=== PATIENT | male | born 1995 | race African-American/Black ===

== ENCOUNTER 2024-01-08 00:17 | Emergency (ER) | payer OTHER ==
[~2024-01-08] VITALS: Ht 177.8 cm; Wt 56.7 kg
[2024-01-08 00:55] VITALS: TEMP 98.1
[2024-01-08 01:43] VITALS: BP 130/70; O2SAT 98
[2024-01-08] MEDS ORDERED: CYCL5TAB PO (01:43)
[2024-01-08] MEDS ORDERED: KETOROLAC TROMETHAMINE INJ 30 MG/ML VIAL ONE (01:45)
[2024-01-08] MEDS: KETOROLAC TROMETHAMINE INJ 30 MG/ML VIAL IM ONE (01:47)
== END 2024-01-08 01:53 | disposition home or self-care (01) ==
LOC: ER 00:23
DX: M54.59 Other low back pain (principal)
CPT/HCPCS: 99285; 72131; 96372; 72128; J1885

== ENCOUNTER 2024-01-20 09:18 | Emergency (ER) | payer OTHER ==
[~2024-01-20] VITALS: Ht 177.8 cm; Wt 56.7 kg
[~2024-01-20 09:18] MED LIST: CYCL5TAB PO
[2024-01-20] MEDS ORDERED: ALBU18HF2 INH (10:03)
[2024-01-20 10:10] VITALS: BP 128/78; TEMP 98; O2SAT 100
== END 2024-01-20 10:11 | disposition home or self-care (01) ==
LOC: ER 09:22
DX: J06.9 Acute upper respiratory infection, unspecified (principal); F17.200 Nicotine dependence, unspecified, uncomplicated; Z79.899 Other long term (current) drug therapy; Z60.2 Problems related to living alone
CPT/HCPCS: 71045-TC